=== PATIENT | female | born 1975 | race Caucasian/White ===

== ENCOUNTER 2016-11-30 21:37 | Emergency (ER) | payer MEDICAID ==
--- NOTE | 2016-12-01 08:13 | ER ---
ADMIT: 11/30/2016 RM/LOC: ER [facility] MR#: [id number] [address] [facility] [address] [place] [id number] [address] [place] [place] [address] [address] [place] [address] Emergency Room Report SEX: F AGE: 41 : 1975 DATE: 11/30/2016 The patient is a 41-year-old female, who contused the back of her left hand at home tonight when she hit it underneath of a counter. She is on meloxicam. Exam remarkable for nontoxic, afebrile female with minimal contusion, dorsum, left hand, 4th and 5th metacarpals. X-ray negative. Advised ice, rest. Continue the meloxicam. Add Tylenol as needed. Follow up Parul Coulter APRN, [employer] O[employer]ATOR-C as needed. Adonis Alcantar MD/ junior JOB #: [id number] CC: Adonis Alcantar MD, Attending Physician Dave Jensen MD, Family Physician Parul Coulter APRN, [employer] OPERATOR-C
== END 2016-11-30 23:00 | disposition home or self-care (01) ==
LOC: ER 21:37
DX: S67.22XA Crushing injury of left hand, initial encounter (principal); K21.9 Gastro-esophageal reflux disease without esophagitis; F17.210 Nicotine dependence, cigarettes, uncomplicated; Z90.49 Acquired absence of other specified parts of digestive tract; X58.XXXA Exposure to other specified factors, initial encounter; Y92.009 Unspecified place in unspecified non-institutional (private) residence as the place of occurrence of the external cause

== ENCOUNTER 2017-05-11 14:18 | Emergency (ER) | payer MEDICAID ==
--- NOTE | ~2017-05-11 | ER ---
ADMIT: 05/11/2017 RM/LOC: [facility] MR#: [id number] [address] [facility] [address] [place], [place] [id number] [address] [place] [id number] Emergency Room Report SEX: F AGE: 42 : 1975 DATE: 05/11/2017 The patient is a 42-year-old presents to the emergency room complaining of dental pain. She has an abscess that the dentist had been treating with clindamycin on her left lower jaw, tooth 19. She says she has an appointment tomorrow with [facility] for a dental extraction, but now she has had five days of antibiotic therapy and says it is getting worse. The pain has increased. She is more sensitive to cold, and there is a swelling in her left lower jaw. She is also a smoker, so concern here for an abscess or angina is high. At this point, she has not had any fever. Does not complain of shortness of breath or issues with swallowing. She does however have a little bit of ear pain. PHYSICAL EXAMINATION: HEENT: Dental: Tooth caries. No visual abscess inside the mouth. No redness in the skin. VITAL SIGNS: Blood pressure. [place] Frances / Jalen Sanchez MD / chanelll JOB #: [id number] CC: Jalen Sanchez MD, Attending Physician Loki Alberts MD, Family Physician
--- NOTE | 2017-05-14 09:47 | ER ---
ADMIT: 05/11/2017 RM/LOC: ER [facility] MR#: [id number] [address] [facility]- [address] [place], [place] [address] [address] [place] [address] [place] [address] [address] [place] [address] Emergency Room Report SEX: F AGE: 42 : 1975 DATE: 05/11/2017 HISTORY OF PRESENT ILLNESS: The patient is a 42-year-old who goes to [facility] and has an appointment tomorrow at 9:30 with a dentist there. She got started on clindamycin. Friday, she said the situation was getting worse. She is a smoker, smokes half a pack a day. She has had tooth #20 with a big cavity lateral to the tooth. No swelling in the lower gums. However, the lower jaw is a bit swollen. It is obvious. There is not erythema. There is no warmth. No cellulitis present. PAST MEDICAL HISTORY: , juan pablo, hysterectomy. MEDICATIONS: She takes: 1. Clindamycin. 2. Ambien. 3. Vyvanse. PHYSICAL EXAMINATION: VITAL SIGNS: Blood pressure 138/98 with a heart rate of 110, respirations 18, temp is 97.5, and O2 sats 99%. GENERAL: Mildly anxious, allowed me to do a dental block, which I did do with bupivacaine 0.25. Procedure well tolerated, relieved immediately with a dental block. She was discharged with a prescription for Ultram for pain control and followup tomorrow. Encouraged to stop smoking at this time, be careful and watch for signs of virchow's angina which could be quite dangerous and could cause some issues with her respiration. She verbalized understanding. Ultram for pain. Oil of close to the tooth to help with the root sensitivity. Continue antibiotics. Apply warm compresses to the area. Follow up with the dentist tomorrow. [place] Frances / Jalen Sanchez MD / junior JOB #: [id number] CC: Jalen Sanchez MD, Attending Physician Loki Alberts MD, Family Physician
== END 2017-05-11 15:24 | disposition home or self-care (01) ==
LOC: ER 14:18
PROC: 3E0T3CZ (ICD-10-PCS; principal; 2017-05-11)
DX: K04.7 Periapical abscess without sinus (principal); F17.210 Nicotine dependence, cigarettes, uncomplicated; Z79.899 Other long term (current) drug therapy; Z90.710 Acquired absence of both cervix and uterus; Z90.49 Acquired absence of other specified parts of digestive tract; Z88.1 Allergy status to other antibiotic agents